=== PATIENT | female | born 1940 | race Caucasian/White ===

== ENCOUNTER 2020-01-05 13:09 | Outpatient (CLI) | payer MEDICARE, SELFPAY ==
--- NOTE | 2020-01-05 13:28 | MR_ITS ---
WS: [id number] MRI BRAIN WITH HIGH-RESOLUTION IMAGING THROUGH THE INTERNAL AUDITORY CANALS WITHOUT AND WITH CONTRAST HISTORY: BILATERAL SENSORINEURAL HEARING LOSS COMPARISON: None available. TECHNIQUE: Multiplanar, multisequence imaging is performed through the brain. Additional 3 mm imaging performed in multiple planes through the internal auditory canal. Postcontrast imaging with 15 ml's of Prohance. No acute intracranial hemorrhage, midline shift, edema or mass effect. Very mild atrophy and chronic microvascular ischemic disease. Prior lacunar infarct versus perivascul ar space RIGHT temporal lobe. No mass or mass effect upon the cerebellopontine angles. Small bilatera l arachnoid cysts are noted within the anterior cerebellum bilaterally. Ventricles and extra-axial spaces are normal. No inferior displacement of cerebellar tonsils. Internal and external auditory canals: Unremarkable. Cranial nerves VII and VIII complexes: Unremarkable. No enhancement or mass. Cerebellopontine angles: Normal. Paranasal sinuses: Normal. Mastoid air cells: Normal. Calvarium and scalp: Normal. Visualized [place] and dural venous sinuses demonstrate no abnormality. MR/MR iac's wo/w con* [id number] IMPRESSION: 1. No acute infarct. No enhancing masses. 2. Negative internal auditory canals. No mass or signal abnormality. 3. Mild chronic microvascular ischemic disease and remote RIGHT temporal lobe. Vascular space versus lacunar infarct.
[2020-01-05 14:35] LABS: Blood Urea Nitrogen 22 mg/dL (8-23)
== END 2020-01-05 13:10 | disposition home or self-care (01) ==
PROVIDERS: PCP Family Medicine; Visit Provider Specialist
DX: H90.3 Sensorineural hearing loss, bilateral (principal); I67.82 Cerebral ischemia
CPT/HCPCS: 36415; 70553; 82565; 84520; A9579

== ENCOUNTER → 2021-10-24 09:54 | Outpatient (BNVA) | payer MEDICARE, SELFPAY | PROVIDERS: PCP Registered Nurse; Visit Provider Specialist | DX: M17.11 Unilateral primary osteoarthritis, right knee (principal); S83.271A Complex tear of lateral meniscus, current injury, right knee, initial encounter; S82.831D Other fracture of upper and lower end of right fibula, subsequent encounter for closed fracture with routine healing; Y99.9 Unspecified external cause status; M25.561 Pain in right knee | CPT/HCPCS: 20610; 73560; 73565; 99204 ==

== ENCOUNTER 2021-10-24 14:35 | Outpatient (CLI) | payer MEDICARE, SELFPAY | END 2021-10-24 14:36 | disposition home or self-care (01) | LOC: SPT 14:36 | PROVIDERS: PCP Registered Nurse; Visit Provider Specialist | DX: Z46.89 Encounter for fitting and adjustment of other specified devices (principal); M17.11 Unilateral primary osteoarthritis, right knee; M25.561 Pain in right knee | CPT/HCPCS: 97760; J1100; J2795; J3301; L1812 ==

== ENCOUNTER → 2023-10-06 10:27 | Outpatient (BNVA) | payer MEDICARE, SELFPAY | PROVIDERS: PCP Registered Nurse; Visit Provider Nurse Practitioner | DX: M17.11 Unilateral primary osteoarthritis, right knee (principal) | CPT/HCPCS: 73560 ==

== ENCOUNTER → 2024-02-11 10:04 | Outpatient (BNVA) | payer MEDICARE, SELFPAY | PROVIDERS: PCP Family Medicine; Visit Provider Podiatrist Foot & Ankle Surgery | DX: M79.671 Pain in right foot (principal); M79.672 Pain in left foot; M21.611 Bunion of right foot; M21.612 Bunion of left foot; M20.41 Other hammer toe(s) (acquired), right foot; M20.42 Other hammer toe(s) (acquired), left foot; M19.071 Primary osteoarthritis, right ankle and foot; M19.072 Primary osteoarthritis, left ankle and foot | CPT/HCPCS: 73630; 99203 ==

== ENCOUNTER 2024-03-09 13:51 | Outpatient (CLI) | payer MEDICARE, SELFPAY | END 2024-03-09 13:52 | disposition home or self-care (01) | LOC: SPT 13:53 | PROVIDERS: PCP Family Medicine; Visit Provider Podiatrist Foot & Ankle Surgery | DX: Z46.89 Encounter for fitting and adjustment of other specified devices (principal); M79.671 Pain in right foot; M79.672 Pain in left foot; M21.611 Bunion of right foot; M21.612 Bunion of left foot; M20.41 Other hammer toe(s) (acquired), right foot; M20.42 Other hammer toe(s) (acquired), left foot; M19.079 Primary osteoarthritis, unspecified ankle and foot | CPT/HCPCS: L3030 ==

== ENCOUNTER → 2025-01-10 11:24 | Outpatient (BNVA) | payer MEDICARE, SELFPAY | PROVIDERS: PCP Family Medicine; Visit Provider Orthopaedic Surgery | DX: M17.11 Unilateral primary osteoarthritis, right knee (principal); G89.29 Other chronic pain | CPT/HCPCS: 73560; 73565; 99204; 99214 ==